=== PATIENT | female | born 1940 | race Two or more races ===

== ENCOUNTER 2017-04-24 00:05 | Inpatient (IN) | payer BC ==
[~2017-04-24] VITALS: Ht 162.6 cm; Wt 63.5 kg
[2017-04-24] VITALS (7 sets, daily range): BP systolic 118–149; BP diastolic 61–86
--- NOTE | 2017-04-24 00:05 | NUR ---
PT C/O LIP NUMBNESS AND HAVING A NEAR BLACK OUT X 5 HOURS. PT WITH FAMILY MEMBER AT BEDSIDE. NO SOB OR PAIN NOTED. JUST C/O WEAKNESS GENERALIZED. A/OX4 LAUGHING AND CRACKING JOKES WITH NSR 3RD DEGREE BLOCK CHANGING TO A-FIB WITH MOBILITY. WILL CONTINUE TO MONITOR FOR ANY CHANGES
[2017-04-24] MEDS ORDERED: ONDANSETRON HCL/PF 4 MG/2 ML VIAL ONE (00:42)
[2017-04-24] MEDS ORDERED: ONDANSETRON HCL/PF 4 MG/2 ML VIAL IVP ONE (01:00)
[2017-04-24] MEDS ORDERED: IV NS 0.9% 1,000 ML BAG IV ONE (01:00)
[2017-04-24 01:12] LABS: BASOPHILS % (AUTO) 0.3 % (0.0-2.0); EOSINOPHILS # (AUTO) 0.2 /CMM (0.0-0.7); EOSINOPHILS % (AUTO) 3.5 % (0.0-6.0); HEMATOCRIT 39 % (33-45); LYMPHOCYTES # (AUTO) 2.7 /CMM (0.8-4.8); LYMPHOCYTES % (AUTO) 38.6 % (20.0-44.0); MEAN CORPUSCULAR HEMOGLOBIN 28 PG (26.0-33.0); MEAN CORPUSCULAR HGB CONC 34 g/dl (31.0-36.0); MEAN CORPUSCULAR VOLUME 83 fL (82-100); MONOCYTES # (AUTO) 0.7 /CMM (0.1-1.30); MONOCYTES % (AUTO) 9.8 % (2.0-12.0); NEUTROPHILS # (AUTO) 3.3 /CMM (1.8-8.9); NEUTROPHILS % (AUTO) 47.8 % (43.0-81.0); PLATELET COUNT (AUTO) 267 /CMM (150-450); RDW COEFFICIENT OF VARIATION 13.8 (11.5-15.0); RED BLOOD CELL COUNT(AUTO) 4.64 MIL/uL (4.0-5.2)
--- NOTE | 2017-04-24 01:12 | NUR ---
PT OFF TO CT SCAN
[2017-04-24 01:26] LABS: CALCIUM, SERUM 9.5 mg/dL (8.5-10.1); CARBON DIOXIDE 31 mmol/L (21-32); CHLORIDE 97 mmol/L (98-107); CREATININE 0.8 mg/dL (0.6-1.3); GLUCOSE 167 mg/dL (74-106); INR 0.94 (0.87-1.13); POTASSIUM 3.4 mmol/L (3.5-5.1); SODIUM SERUM 138 mmol/L (136-145); UREA NITROGEN, BLOOD 22 mg/dL (7-18)
[2017-04-24 01:31] LABS: ALANINE AMINOTRANSFERASE 39 U/L (12-78); ALBUMIN 3.9 g/dL (3.4-5.0); ALKALINE PHOSPHATASE 53 U/L (46-116); ASPARTATE AMINOTRANSFERASE 25 U/L (15-37); BILIRUBIN,DIRECT 0.1 mg/dL (0.0-0.2); BILIRUBIN,TOTAL 0.4 mg/dL (0.2-1.0); TOTAL PROTEIN, SERUM 8.7 g/dL (6.4-8.2); TROPONIN I < 0.017 ng/mL (0.00-0.056)
--- NOTE | 2017-04-24 03:22 | NUR ---
CHARGE NURSE AND I SPOKE TO PT. SHE STATED "I FEEL A LITTLE LIGHT HEADED" AFTER WALKING WITH HER DOWN THE [place]
--- NOTE | 2017-04-24 03:29 | NUR ---
REPORT GIVEN TO PRESLEY
[2017-04-24] MEDS ORDERED: VALS1TAB54 PO (03:37)
[2017-04-24] MEDS ORDERED: AMLO5TAB2 PO (03:37)
--- NOTE | 2017-04-24 03:55 | NUR ---
RUSH SEATER NOTES PATIENT BROUGHT INTO THE UNIT VIA GURNEY FROM ED, ACCOMPANIED BY SON, BO. PATIENT SAFELY AMBULATED FROM GURNEY TO BED, ALERT AND ORIENTED X 4, NO C/O PAIN, NO SOB, BREATHING EVEN AND UNLABORED. ORIENTED PT TO FACILITY, ADMISSION PROCESS, ROOM, CALL LIGHT AND USE OF CALL LIGHT, PT VERBALIZED UNDERSTANDING. PLACED BED IN LOW POSITION AND LOCKED IN PLACE. PATIENT NOTED WITH INTACT SKIN, WITH LAC G20 IV PERIPHERAL LINE. ALL PATIENT'S NEEDS ATTENDED TO AT THIS TIME, WILL CONTINUE TO MONITOR.
[2017-04-24] MEDS ORDERED: ZOLPIDEM TARTRATE 5 MG TABLET PO PRN (04:30)
[2017-04-24] MEDS ORDERED: IV NS 0.9% 1,000 ML IV PRN (04:30)
[2017-04-24] MEDS ORDERED: MAG HYDROX/AL HYDROX/SIMETH 30 ML UDC PO PRN (04:30)
[2017-04-24] MEDS ORDERED: ACETAMINOPHEN 325 MG TABLET PO PRN (04:30)
[2017-04-24] MEDS ORDERED: MAGNESIUM HYDROXIDE 30 ML UDC PO PRN (04:30)
[2017-04-24] MEDS ORDERED: Z GUARD REMEDY 2 OZ OINT TP PRN (04:30)
[2017-04-24] MEDS ORDERED: ONDANSETRON HCL/PF 4 MG/2 ML VIAL IVP PRN (04:30)
[2017-04-24] MEDS ORDERED: HYDROCODONE/APAP 5/325MG 1 EACH TABLET PO PRN (04:30)
[2017-04-24] MEDS ORDERED: PRAV40TA3 PO (05:38)
[2017-04-24] MEDS ORDERED: SITA100T PO (05:38)
[2017-04-24] MEDS ORDERED: GLIP10TA11 PO (05:38)
--- NOTE | 2017-04-24 06:35 | NUR ---
RN CLOSING NOTE RESIDENT IN BED, ALERT AND ORIENTED X 4, NO C/O PAIN, DENIES DIZZINESS, NO SOB, BREATHING EVEN AND UNLABORED, PT ABLE TO AMBULATE TO THE BATHROOM WITH STANDBY ASSIST. ALL PATIENT'S NEEDS ATTENDED TO AT THIS TIME. WILL ENDORSE TO AM SHIFT NURSE FOR CONTINUITY OF CARE.
[2017-04-24 07:48] LABS: BASOPHILS % (AUTO) 0.3 % (0.0-2.0); EOSINOPHILS # (AUTO) 0.1 /CMM (0.0-0.7); HEMATOCRIT 38 % (33-45); HEMOGLOBIN 12.7 g/dL (11.5-14.8); LYMPHOCYTES # (AUTO) 2.2 /CMM (0.8-4.8); LYMPHOCYTES % (AUTO) 32.5 % (20.0-44.0); MEAN CORPUSCULAR HEMOGLOBIN 28 PG (26.0-33.0); MEAN CORPUSCULAR HGB CONC 34 g/dl (31.0-36.0); MEAN CORPUSCULAR VOLUME 83 fL (82-100); MONOCYTES # (AUTO) 0.6 /CMM (0.1-1.30); MONOCYTES % (AUTO) 8.8 % (2.0-12.0); NEUTROPHILS # (AUTO) 3.8 /CMM (1.8-8.9); NEUTROPHILS % (AUTO) 56.4 % (43.0-81.0); PLATELET COUNT (AUTO) 252 /CMM (150-450); RDW COEFFICIENT OF VARIATION 13.9 (11.5-15.0); RED BLOOD CELL COUNT(AUTO) 4.52 MIL/uL (4.0-5.2); WHITE BLOOD COUNT (AUTO) 6.8 K/uL (4.3-11.0)
--- NOTE | 2017-04-24 08:00 | NUR ---
tele net technical architect: initial assessment received pt in bed awake, a/ox4. denies dizziness, chest pain, sob, or any discomfort. tele sr with bbb=[id number]. instructed to call for assistance. will continue to monitor.
[2017-04-24 08:10] LABS: CHOLESTEROL 167 mg/dL (<200); HDL CHOLESTEROL 85 mg/dL (40-60); LDL 72 mg/dL (0-99); TRIGLYCERIDES 47 mg/dL (30-150)
[2017-04-24 08:15] LABS: CALCIUM, SERUM 8.9 mg/dL (8.5-10.1); CARBON DIOXIDE 28 mmol/L (21-32); CHLORIDE 104 mmol/L (98-107); CREATININE 0.7 mg/dL (0.6-1.3); GLUCOSE 153 mg/dL (74-106); MAGNESIUM 2.1 mg/dL (1.8-2.4); PHOSPHORUS 3.1 mg/dL (2.5-4.9); POTASSIUM 3.4 mmol/L (3.5-5.1); SODIUM SERUM 142 mmol/L (136-145); UREA NITROGEN, BLOOD 16 mg/dL (7-18)
[2017-04-24] MEDS ORDERED: ENOXAPARIN SODIUM 40 MG/0.4 ML DISP.SYRIN SQ SCH (09:00)
[2017-04-24] MEDS ORDERED: POTASSIUM CHLORIDE 20 MEQ TAB.PRT.SR PO SCH ×2 (10:00→12:30)
--- NOTE | 2017-04-24 10:00 | NUR ---
tele arcgis developer: neuro consult seen and examined by dr. schultz at this time.
--- NOTE | 2017-04-24 12:00 | NUR ---
tele dye house vat worker: notes pt request to have pneumococcal vaccination; pt refused on admission, but change his mind. pt qualifies and will administer when receive.
[2017-04-24] MEDS ORDERED: ASPIRIN EC 325 MG TABLET.DR PO SCH (12:30)
[2017-04-24] MEDS ORDERED: PNEUMOCOCCAL 23-VAL P-SAC VAC 0.5 ML VIAL SQ ONE (12:30)
--- NOTE | 2017-04-24 13:00 | NUR ---
tele flower cutter: notes orders received from dr. schultz. all orders acknowledged. pt for mri brain without contrast. checklist done and signed by pt. instructed to call for assistance. will continue to monitor.
--- NOTE | 2017-04-24 13:50 | NUR ---
tele web services developer: notes pneumococcal 0.5ml vaccination given sq to left arm. tele remove, pt for mri at this time. will continue to monitor.
--- NOTE | 2017-04-24 14:30 | NUR ---
tele kickboxing instructor: notes dr. cadena looking for pt and informed md that pt is at mri at this time; also informed md re: home medication needs to be reconciled.
--- NOTE | 2017-04-24 14:45 | NUR ---
tele tractor mechanic helper: notes pt back from mri brain, c/o barron. tylenol 650mg po given as ordered. left message to dr. cadena thru exchange re: pt back to her room.
--- NOTE | 2017-04-24 14:50 | NUR ---
tele dormitory supervisor: md visit dr. cadena at bedside at this time. will continue to monitor.
--- NOTE | 2017-04-24 16:13 | NUR ---
tele continuous miner operator helper: notes received order from dr. cadena to d'c pt home with Discharge instructions <Followup with primary care physician in one to 2 weeks, Increase dose of aspirin to take 325 mg daily, Continue the rest of the medications. order acknowledged. pt made aware.
--- NOTE | 2017-04-24 16:30 | NUR ---
tele senior specialist: d'c instructions discharged instructions given to pt and verbalized understanding. tele removed. h/l removed with tip intact with no bleeding, no redness, and no swelling noted. awaiting for son to pick her up.
--- NOTE | 2017-04-24 17:07 | NUR ---
tele search planner: discharged discharged home accompanied by son via taxi in stable condition with all valuables and d'c papers.
[2017-04-24] MEDS ORDERED: ATORVASTATIN 10 MG TABLET PO SCH (22:00)
== END 2017-04-24 17:05 | disposition home or self-care (01) | DRG 69 ==
LOC: ER 00:08 → TELE 03:30
PROVIDERS: ADMIT Nurse Practitioner Acute Care; ATTEND Nurse Practitioner Acute Care
DX: G45.9 Transient cerebral ischemic attack, unspecified (principal); I48.0 Paroxysmal atrial fibrillation; E11.9 Type 2 diabetes mellitus without complications; E78.5 Hyperlipidemia, unspecified; G43.109 Migraine with aura, not intractable, without status migrainosus; I10 Essential (primary) hypertension; Z79.84 Long term (current) use of oral hypoglycemic drugs
CPT/HCPCS: 36415; 70450-TC; 70551-TC; 71045-TC; 80048-TC; 80061-TC; 80076-TC; 83735-TC; 84100-TC; 84484-TC; 85025-TC; 85730-TC; 87081-TC; 90732; 93307-TC; 93880-TC; A4606; J1650; J2405; J7030; Z7610

== ENCOUNTER 2022-04-23 21:49 | Inpatient (IN) | payer BC ==
[~2022-04-23] VITALS: Ht 154.9 cm; Wt 61.2 kg
[~2022-04-23 21:49] MED LIST: AMLO-212 PO; GLIP10TA11 PO; PRAV40TA3 PO; SITA100T PO; VALS1TAB8 PO
--- NOTE | 2022-04-23 22:03 | NUR ---
Sona, sent by PMD c/o headache and lip heaviness since 8pm. Pt A/Ox4. Tolerating R/A well with no Resp distress. Connected pt to POX and monitor. Safety measures in place.
--- NOTE | 2022-04-23 22:33 | NUR ---
LAC #20G S/L BLOOD AND COVID ANTIGEN SWAB COLLECTED AND SENT TO LAB
--- NOTE | 2022-04-23 22:34 | NUR ---
EMT AT PT'S BEDSIDE FOR EKG
--- NOTE | 2022-04-23 22:45 | NUR ---
PT TAKEN TO CT VIA JAKE
[2022-04-23 22:48] LABS: BASOPHILS # (AUTO) 0.1 K/uL (0.0-0.2); BASOPHILS % (AUTO) 0.6 % (0.0-2.0); EOSINOPHILS % (AUTO) 2.8 % (0.0-6.0); HEMATOCRIT 33 % (33-45); HEMOGLOBIN 10.7 g/dL (11.5-14.8); LYMPHOCYTES # (AUTO) 3.1 K/uL (0.8-4.8); MEAN CORPUSCULAR HGB CONC 32 g/dl (31.0-36.0); MEAN CORPUSCULAR VOLUME 86 fL (82-100); MONOCYTES # (AUTO) 0.8 K/uL (0.1-1.30); MONOCYTES % (AUTO) 8.3 % (2.0-12.0); NEUTROPHILS # (AUTO) 5.4 K/uL (1.8-8.9); NEUTROPHILS % (AUTO) 56.3 % (43.0-81.0); PLATELET COUNT (AUTO) 278 K/uL (150-450); RED BLOOD CELL COUNT(AUTO) 3.86 MIL/uL (4.0-5.2); WHITE BLOOD COUNT (AUTO) 9.6 K/uL (4.3-11.0)
[2022-04-23 22:58] LABS: CALCIUM, SERUM 9.3 mg/dL (8.5-10.1); CARBON DIOXIDE 30 mmol/L (21-32); CHLORIDE 102 mmol/L (98-107); CREATININE 1.2 mg/dL (0.6-1.3); GLUCOSE 200 mg/dL (74-106); SODIUM SERUM 137 mmol/L (136-145); UREA NITROGEN, BLOOD 44 mg/dL (7-18)
[2022-04-23 23:11] LABS: ALANINE AMINOTRANSFERASE 33 U/L (12-78); ALBUMIN 3.9 g/dL (3.4-5.0); ALKALINE PHOSPHATASE 71 U/L (46-116); ASPARTATE AMINOTRANSFERASE 30 U/L (15-37); BILIRUBIN,DIRECT 0.1 mg/dL (0.0-0.2); BILIRUBIN,TOTAL 0.3 mg/dL (0.2-1.0); TOTAL PROTEIN, SERUM 7.7 g/dL (6.4-8.2)
[2022-04-24] MEDS ORDERED: INSULIN GLARGINE, 100 UNIT/ML CARTRIDGE SQ SCH (00:30)
[2022-04-24] MEDS ORDERED: INSULIN GLARGINE, 100 UNIT/ML CARTRIDGE SQ ONE (00:32)
[2022-04-24] MEDS ORDERED: ASPIRIN 325 MG TABLET ONE (00:40)
[2022-04-24] MEDS ORDERED: ACETAMINOPHEN ES 500 MG TABLET ONE (00:40)
[2022-04-24] MEDS ORDERED: hydrALAZINE HCL IV 20 MG VIAL IV PRN (01:00)
[2022-04-24] MEDS ORDERED: ACETAMINOPHEN ES 500 MG TABLET PO ONE (01:00)
[2022-04-24] MEDS ORDERED: ASPIRIN 325 MG TABLET PO ONE (01:00)
[2022-04-24] MEDS ORDERED: ENOXAPARIN SODIUM 40 MG/0.4 ML DISP.SYRIN SQ SCH (01:00)
[2022-04-24 02:04] LABS: THYROID STIMULATING HORMONE 4.291 uIU/mL (0.358-3.74)
--- NOTE | 2022-04-24 02:17 | NUR ---
bed 102
--- NOTE | 2022-04-24 02:36 | NUR ---
report given to josue
[2022-04-24] MEDS ORDERED: DEXTROSE 50%-WATER 50 ML DISP.SYRIN IV PRN (03:00)
--- NOTE | 2022-04-24 03:04 | NUR ---
patient transported to room 102 in stable condition via rney
--- NOTE | 2022-04-24 04:27 | NUR ---
RN NOTE PT A/O X4 ABLE TO MAKE NEEDS KNOW. ON ROOM AIR TOLERATING WELL NO DISTRESS NOTED. PT NOTED WITH IV ACCESS ON LAC #20G S/L FLUSHING WELL. PT SON AT BEDSIDE. PT URINE COLLECTED PT NOTED OT BE ABLE TO AMBULATE WITH A STEADY GAIT. PT ORIENTED TO UNIT AND ROOM. CALL LIGHT WITHIN REACH.TABLE WITHIN REACH. ALL NEEDS MET AT THIS TIME.
[2022-04-24 04:32] VITALS: BP 156/67
[2022-04-24] MEDS ORDERED: GABA-532 PO (05:41)
[2022-04-24] MEDS ORDERED: AMYL1CAP56 PO (05:41)
[2022-04-24] MEDS ORDERED: SPIR50TA5 PO (05:41)
[2022-04-24] MEDS ORDERED: CARV12.52 PO (05:41)
[2022-04-24] MEDS ORDERED: INSU100V7 SQ (05:41)
[2022-04-24] MEDS ORDERED: INSU100V39 SQ (05:41)
[2022-04-24] MEDS ORDERED: BRIN10DR RIGHTEYE (05:41)
[2022-04-24] MEDS ORDERED: LOSA100T31 PO (05:41)
[2022-04-24] MEDS ORDERED: FAMO20TA8 PO (05:41)
[2022-04-24] MEDS ORDERED: FURO20TA4 PO (05:41)
[2022-04-24] MEDS ORDERED: LATA7.5D EACHEYE (05:41)
[2022-04-24 05:54] LABS: BILIRUBIN,URINE NEGATIVE (NEGATIVE); COLOR,URINE OTHER (YELLOW); LEUKOCYTE ESTERASE ,URINE 1+ (NEGATIVE); NITRITE, URINE NEGATIVE (NEGATIVE); PROTEIN,URINE NEGATIVE (NEGATIVE); UGLUCOSE NEGATIVE (NEGATIVE); UROBILINOGEN,URINE 0.2 EU/dL (0.2)
[2022-04-24 06:12] LABS: BACTERIA,URINE Many /HPF (None Seen)
[2022-04-24 06:13] LABS: RBC,URINE 0-2 /HPF (0-2); SQUAMOUS EPITHELIAL CELL,UR Few /HPF (None Seen)
--- NOTE | 2022-04-24 06:56 | NUR ---
RN CLOSING NOTE PT A/O X4 ABLE TO MAKE NEEDS KNOW. ON ROOM AIR TOLERATING WELL NO DISTRESS NOTED. PT NOTED WITH IV ACCESS ON LAC #20G S/L FLUSHING WELL. PT ON TELE MONITOR READING SB 50S CALL LIGHT WITHIN REACH.TABLE WITHIN REACH. ALL NEEDS MET AT THIS TIME.
[2022-04-24] MEDS ORDERED: PANTOPRAZOLE 40 MG TABLET.DR PO SCH (07:30)
--- NOTE | 2022-04-24 07:55 | NUR ---
teletype clerk note patient in bed , all needs attended on tele monitor sr hr 61, alert oriented x4, assisted to br , lt ac hl intact and flushed well , bed in lowest and locked position , call light within reach. on r a no sob noted at this time, will cont to monitor
[2022-04-24 08:00] VITALS: BP 159/76
[2022-04-24] MEDS: INSULIN REGULAR, HUMAN 100 UNIT/ML 3 ML VIAL SQ PRN ×2 (08:20→11:54)
[2022-04-24] MEDS: BLOOD SUGAR DIAGNOSTIC 1 EACH STRIP IN SCH ×3 (08:22→17:26)
[2022-04-24] MEDS ORDERED: ASPIRIN EC 81 MG TABLET.DR PO SCH (09:00)
--- NOTE | 2022-04-24 11:20 | NUR ---
AOC AIRSPACE CONTROL OFFICER NOTES PHYSICAL THERAPIST AT BEDSIDE. PATIENT AMBULATORY WITH SOME ASSISTANCE. NO COMPLAINTS OF PAIN OR DISCOMFORT. 4567 DVT COMPRESSION STOCKINGS ORDERED.
[2022-04-24 11:28] LABS: CHOLESTEROL 131 mg/dL (<200); HDL CHOLESTEROL 80 mg/dL (40-60); LDL 41 mg/dL (0-99); TRIGLYCERIDES 57 mg/dL (30-150)
[2022-04-24 12:00] VITALS: BP 166/79
--- NOTE | 2022-04-24 12:02 | NUR ---
STAFF RADIOLOGIST NOTES SPOKE WITH RN/TELEPHONE ORDER DISPATCHER VERENA CAUSEY ABOUT BP 166/79. REQUESTED THAT CHECK MED RECONCILIATION. PER HIS ORDER, CALLED NEUROLOGIST DR PUENTE FOR NEUROLOGY CONSULT- STATED HE WILL COME SHORTLY.
[2022-04-24] MEDS: LIPASE/PROTEASE/AMYLASE 1 EACH CAPSULE.DR PO SCH ×2 (12:40→17:28)
[2022-04-24] MEDS: GABAPENTIN 100 MG CAPSULE PO SCH ×2 (12:40→16:16)
[2022-04-24] MEDS ORDERED: IBUP-1957 PO (12:51)
[2022-04-24] MEDS ORDERED: DORZ10DR11 RIGHTEYE (12:51)
[2022-04-24] MEDS ORDERED: CHOL100043 PO (12:51)
[2022-04-24] MEDS ORDERED: ATOR10TA PO (12:51)
[2022-04-24] MEDS ORDERED: BRIN8DRO2 RIGHTEYE (12:51)
--- NOTE | 2022-04-24 15:18 | NUR ---
GAS METER REPAIRER NOTES PATIENT ROUNDS COMPLETED. PATIENT IN BED RESTING WITH SON AT BEDSIDE. NEURO CONSULT COMPLETED. DVT PUMP IN PLACE. DR PUENTE AT BEDSIDE, SPOKE WITH PATIENT.
[2022-04-24 16:00] VITALS: BP 152/72
[2022-04-24 16:40] VITALS: BP 152/72
[2022-04-24] MEDS ORDERED: CARVEDILOL 12.5 MG TABLET PO SCH (17:00)
[2022-04-24] MEDS ORDERED: FUROSEMIDE 20 MG TABLET PO SCH (17:00)
[2022-04-24] MEDS ORDERED: ASPI-1169 PO (17:05)
[2022-04-24] MEDS ORDERED: SIMV-46 PO (17:05)
--- NOTE | 2022-04-24 17:48 | NUR ---
MED SURG NURSE NOTES PATIENT DISCHARGED ORDERED. DISCHARGE INSTRUCTIONS GIVEN. CONFIRMED UNDERSTANDING. INSTRUCTED TO FOLLOW UP WITH DOCTOR AND NEUROLOGIST. INSTRUCTED ON MEDICATION REGIMEN AND TOLD TO CONTINUE ON IT. EXPLAINED SIDE EFFECTS. TEACHING AND EDUCATION MATERIAL GIVEN AT BEDSIDE REGARDING STROKE. CONFIRMED UNDERSTANDING. HEP LOCK REMOVED, DRIED DRESSING APPLIED. NO BLEEDING NOTED. SON AT BEDSIDE. PATIENT TAKEN TO LOBBY IN WHEELCHAIR IN STABLE CONDITION. ALL BELONGINGS TAKEN.
[2022-04-24] MEDS ORDERED: ATORVASTATIN 10 MG TABLET PO SCH (18:00)
[2022-04-24] MEDS ORDERED: ENOXAPARIN SODIUM 30 MG/0.3 ML DISP.SYRIN SQ SCH (21:00)
[2022-04-24] MEDS ORDERED: SIMVASTATIN 20 MG TABLET PO SCH (22:00)
[2022-04-24] MEDS ORDERED: INSULIN GLARGINE HUM REC ANLOG 12 UNIT SQ SCH (22:00)
[2022-04-25] MEDS ORDERED: SPIRONOLACTONE 25 MG TABLET PO SCH (09:00)
[2022-04-25] MEDS ORDERED: LOSARTAN POTASSIUM 50 MG TABLET PO SCH (09:00)
[2022-04-25] MEDS ORDERED: Medication Not On Formulary EA (Valsartan/Hydrochlorothiazide (Diovan Hct 320-25 Mg Tabl PO SCH (09:00)
[2022-04-25] MEDS ORDERED: FAMOTIDINE (20 MG) 20 MG TABLET PO SCH (09:00)
[2022-04-25] MEDS ORDERED: AMLODIPINE BESYLATE 5 MG TABLET PO SCH (09:00)
[2022-04-25] MEDS ORDERED: BRINZOLAMIDE 1 % OPHTH SOLN 10 ML BOTTLE RIGHTEYE SCH (09:00)
[2022-04-25] MEDS ORDERED: LATANOPROST EYE DROP 0.005% 2.5 ML BOTTLE EACHEYE SCH (09:00)
--- NOTE | 2022-04-25 16:40 | NUR ---
SS consult requested for stroke over the weekend. However, pt. has departed.
== END 2022-04-24 17:48 | disposition home health service (06) | DRG 69 ==
LOC: ER 22:00 → MEDSG1 04-24 02:26 → TELE1 04-24 03:13 → MEDSG1 04-24 14:25
PROVIDERS: ADMIT Nurse Practitioner Acute Care; ATTEND Nurse Practitioner Acute Care
DX: G45.9 Transient cerebral ischemic attack, unspecified (principal); G43.909 Migraine, unspecified, not intractable, without status migrainosus; R29.700 NIHSS score 0; Z20.822 Contact with and (suspected) exposure to COVID-19; E11.9 Type 2 diabetes mellitus without complications; I10 Essential (primary) hypertension; Z88.0 Allergy status to penicillin; Z88.8 Allergy status to other drugs, medicaments and biological substances; Z91.012 Allergy to eggs; Z79.84 Long term (current) use of oral hypoglycemic drugs; Z79.899 Other long term (current) drug therapy; E86.0 Dehydration; R79.89 Other specified abnormal findings of blood chemistry; I35.1 Nonrheumatic aortic (valve) insufficiency; E78.5 Hyperlipidemia, unspecified; R94.6 Abnormal results of thyroid function studies
CPT/HCPCS: 36415; 70450-TC; 71045-TC; 80048-TC; 80061-TC; 80076-TC; 81001; 82962-TC; 83880; 84443-TC; 84484-TC; 85025-TC; 85652-TC; 87081-TC; 87086-TC; 93307-TC; 93880-TC; 97116-TC; 97530-TC; C9803; G0378; J1650; J1815

== ENCOUNTER 2022-07-17 23:16 | Inpatient (IN) | payer BC ==
[~2022-07-17] VITALS: Ht 165.1 cm; Wt 63.0 kg
[~2022-07-17 23:16] MED LIST changes: -AMLO-212 PO; +AMYL1CAP56 PO; +ASPI-1169 PO; +BRIN8DRO2 RIGHTEYE; +CARV12.52 PO; +CHOL100043 PO; +DORZ10DR11 RIGHTEYE; +FAMO20TA8 PO; +FURO20TA4 PO; +GABA-532 PO; -GLIP10TA11 PO; +IBUP-1957 PO; +INSU100V39 SQ; +INSU100V7 SQ; +LATA7.5D EACHEYE; +LOSA100T31 PO; -PRAV40TA3 PO; +SIMV-46 PO; -SITA100T PO; +SPIR50TA5 PO; -VALS1TAB8 PO
--- NOTE | 2022-07-17 23:25 | NUR ---
To ER bed 1, bibson, c/o chest pressure and headache started around 7pm 8/10 ps, aaox4, breathing even and non labored, connected to monitor, awaiting md orders
[2022-07-17] MEDS ORDERED: NITROGLYCERIN 0.4 MG/TAB BOTTLE SL ONE (23:30)
[2022-07-17] MEDS ORDERED: NITROGLYCERIN 0.4 MG/TAB BOTTLE ONE (23:32)
--- NOTE | 2022-07-17 23:40 | NUR ---
COVID SWAB DONE AND SENT TO LAB
[2022-07-17 23:57] LABS: BASOPHILS # (AUTO) 0.1 K/uL (0.0-0.2); BASOPHILS % (AUTO) 1.3 % (0.0-2.0); EOSINOPHILS % (AUTO) 3.4 % (0.0-6.0); HEMATOCRIT 32 % (33-45); HEMOGLOBIN 10.5 g/dL (11.5-14.8); LYMPHOCYTES % (AUTO) 31.6 % (20.0-44.0); MEAN CORPUSCULAR HGB CONC 33 g/dl (31.0-36.0); MEAN CORPUSCULAR VOLUME 83 fL (82-100); MONOCYTES # (AUTO) 1.1 K/uL (0.1-1.30); MONOCYTES % (AUTO) 11.1 % (2.0-12.0); NEUTROPHILS % (AUTO) 52.6 % (43.0-81.0); PLATELET COUNT (AUTO) 243 K/uL (150-450); RED BLOOD CELL COUNT(AUTO) 3.88 MIL/uL (4.0-5.2); WHITE BLOOD COUNT (AUTO) 9.4 K/uL (4.3-11.0)
[2022-07-18 00:10] LABS: ALANINE AMINOTRANSFERASE 33 U/L (12-78); ALBUMIN 3.8 g/dL (3.4-5.0); ALKALINE PHOSPHATASE 78 U/L (46-116); ASPARTATE AMINOTRANSFERASE 21 U/L (15-37); BILIRUBIN,DIRECT 0.1 mg/dL (0.0-0.2); BILIRUBIN,TOTAL 0.3 mg/dL (0.2-1.0); CALCIUM, SERUM 9.1 mg/dL (8.5-10.1); CARBON DIOXIDE 27 mmol/L (21-32); CHLORIDE 98 mmol/L (98-107); CREATININE 1.8 mg/dL (0.6-1.3); GLUCOSE 160 mg/dL (74-106); POTASSIUM 5.3 mmol/L (3.5-5.1); SODIUM SERUM 131 mmol/L (136-145); TOTAL PROTEIN, SERUM 7.5 g/dL (6.4-8.2); UREA NITROGEN, BLOOD 58 mg/dL (7-18)
[2022-07-18] MEDS ORDERED: ACETAMINOPHEN 325 MG TABLET ONE (02:08)
--- NOTE | 2022-07-18 02:13 | NUR ---
URINE COLLECTED AND SENT TO LAB
[2022-07-18] MEDS ORDERED: ACETAMINOPHEN 325 MG TABLET PO ONE (02:30)
[2022-07-18] MEDS ORDERED: DEXTROSE 50%-WATER 50 ML DISP.SYRIN IV PRN (03:00)
[2022-07-18] MEDS ORDERED: INSULIN REGULAR, HUMAN 100 UNIT/ML 3 ML VIAL SQ PRN (03:00)
[2022-07-18 03:21] LABS: BILIRUBIN,URINE NEGATIVE (NEGATIVE); COLOR,URINE YELLOW (YELLOW); LEUKOCYTE ESTERASE ,URINE NEGATIVE (NEGATIVE); NITRITE, URINE NEGATIVE (NEGATIVE); PROTEIN,URINE NEGATIVE (NEGATIVE); UGLUCOSE NEGATIVE (NEGATIVE); UROBILINOGEN,URINE 0.2 EU/dL (0.2)
[2022-07-18 05:02] LABS: BASOPHILS % (AUTO) 0.5 % (0.0-2.0); EOSINOPHILS % (AUTO) 4.2 % (0.0-6.0); HEMATOCRIT 33 % (33-45); HEMOGLOBIN 10.7 g/dL (11.5-14.8); LYMPHOCYTES # (AUTO) 2.7 K/uL (0.8-4.8); LYMPHOCYTES % (AUTO) 28.8 % (20.0-44.0); MEAN CORPUSCULAR HGB CONC 33 g/dl (31.0-36.0); MEAN CORPUSCULAR VOLUME 83 fL (82-100); MONOCYTES # (AUTO) 0.8 K/uL (0.1-1.30); MONOCYTES % (AUTO) 9.1 % (2.0-12.0); NEUTROPHILS # (AUTO) 5.3 K/uL (1.8-8.9); NEUTROPHILS % (AUTO) 57.4 % (43.0-81.0); PLATELET COUNT (AUTO) 245 K/uL (150-450); RED BLOOD CELL COUNT(AUTO) 3.94 MIL/uL (4.0-5.2); WHITE BLOOD COUNT (AUTO) 9.2 K/uL (4.3-11.0)
[2022-07-18 05:10] LABS: CALCIUM, SERUM 9.7 mg/dL (8.5-10.1); CARBON DIOXIDE 25 mmol/L (21-32); CHLORIDE 100 mmol/L (98-107); CREATININE 1.4 mg/dL (0.6-1.3); GLUCOSE 192 mg/dL (74-106); SODIUM SERUM 133 mmol/L (136-145); UREA NITROGEN, BLOOD 55 mg/dL (7-18)
--- NOTE | 2022-07-18 05:24 | NUR ---
PER NURSE CATHLEEN REINA, TRANSFER AFTER CHANGE OF SHIFT
[2022-07-18 05:26] LABS: ALANINE AMINOTRANSFERASE 33 U/L (12-78); ALBUMIN 3.8 g/dL (3.4-5.0); ALKALINE PHOSPHATASE 78 U/L (46-116); ASPARTATE AMINOTRANSFERASE 26 U/L (15-37); BILIRUBIN,TOTAL 0.4 mg/dL (0.2-1.0); CHOLESTEROL 134 mg/dL (<200); HDL CHOLESTEROL 92 mg/dL (40-60); LDL 34 mg/dL (0-99); THYROID STIMULATING HORMONE 2.732 uIU/mL (0.358-3.74); TOTAL PROTEIN, SERUM 7.6 g/dL (6.4-8.2); TRIGLYCERIDES 46 mg/dL (30-150)
--- NOTE | 2022-07-18 05:49 | NUR ---
REPORT GIVEN TO TAINA MICHAEL FOR DL. TRANSFER AT [id number]
[2022-07-18] MEDS ORDERED: BLOOD SUGAR DIAGNOSTIC 1 EACH STRIP IN SCH ×2 (06:00→07:30)
--- NOTE | 2022-07-18 07:40 | NUR ---
transferred to bed 117 in stable condition
--- NOTE | 2022-07-18 07:58 | NUR ---
PATIENT RECEIVED FROM THE ER IN STABLE CONDITION. PATIENT TRANSFERRED TO ROOM 110. ON ROOM AIR WITH BREATHING EVEN AND UNLABORED AND NO S/S OF SOB OR RESPIRATORY DISTRESS. PATIENT'S SON AT BEDSIDE. WILL CONTINUE TO MONITOR.
[2022-07-18 08:00] VITALS: BP 110/77
[2022-07-18] MEDS ORDERED: hydrALAZINE HCL 50 MG TABLET PO SCH (09:00)
[2022-07-18] MEDS ORDERED: FAMOTIDINE (20 MG) 20 MG TABLET PO SCH (09:00)
[2022-07-18] MEDS ORDERED: LOSARTAN POTASSIUM 50 MG TABLET PO SCH (09:00)
[2022-07-18] MEDS: TIMOLOL MAL/DORZOLAM HCL OPHTH 10 ML BOTTLE RIGHTEYE SCH ×2 (09:00→12:14)
[2022-07-18] MEDS ORDERED: HEPARIN SODIUM, PORCINE 5000 UNITS/1 ML VIAL SQ SCH (09:00)
[2022-07-18] MEDS ORDERED: IV NS 0.9% 1,000 ML IV PRN (09:00)
[2022-07-18] MEDS ORDERED: PANTOPRAZOLE 40 MG VIAL IV SCH (09:00)
[2022-07-18] MEDS ORDERED: GABAPENTIN 100 MG CAPSULE PO SCH (09:00)
[2022-07-18] MEDS ORDERED: ASPIRIN 81 MG TAB.CHEW PO SCH ×2 (09:00)
[2022-07-18] MEDS ORDERED: NITROGLYCERIN 30 GM TUBE TP SCH (09:00)
[2022-07-18] MEDS ORDERED: CARVEDILOL 6.25 MG TABLET PO SCH (09:00)
[2022-07-18] MEDS ORDERED: CARVEDILOL 12.5 MG TABLET PO SCH (09:00)
[2022-07-18] MEDS: BLOOD SUGAR DIAGNOSTIC 1 EACH STRIP IN SCH ×2 (09:14→12:31)
[2022-07-18 09:35] VITALS: BP 110/77
[2022-07-18 09:47] LABS: THYROID STIMULATING HORMONE 2.832 uIU/mL (0.358-3.74)
--- NOTE | 2022-07-18 12:27 | NUR ---
PATIENT STATES THAT SHE DOES NOT TAKE TIMOLOL
[2022-07-18] MEDS ORDERED: LIPASE/PROTEASE/AMYLASE 1 EACH CAPSULE.DR PO SCH (13:00)
--- NOTE | 2022-07-18 13:16 | NUR ---
PATIENT DISCHARGED IN STABLE CONDITION TO HOME. LEFT WITH SON. EXITCARE PROVIDED.
[2022-07-18 15:51] LABS: CREATININE, URINE 63.3 MG/DL (30.0-125.0)
[2022-07-18] MEDS ORDERED: FUROSEMIDE 20 MG TABLET PO SCH (17:00)
[2022-07-18] MEDS ORDERED: IBUPROFEN 800 MG TABLET PO SCH (17:00)
[2022-07-18] MEDS ORDERED: PRAVASTATIN SODIUM 20 MG TABLET PO SCH (22:00)
[2022-07-18] MEDS ORDERED: LATANOPROST EYE DROP 0.005% 2.5 ML BOTTLE EACHEYE SCH (22:00)
[2022-07-18] MEDS ORDERED: INSULIN GLARGINE, 100 UNIT/ML CARTRIDGE SQ SCH (22:00)
[2022-07-18] MEDS ORDERED: SIMVASTATIN 20 MG TABLET PO SCH (22:00)
== END 2022-07-18 13:30 | disposition home or self-care (01) | DRG 205 ==
LOC: ER 23:17 → TELE1 07-18 05:25
PROVIDERS: ADMIT Nurse Practitioner Acute Care; ATTEND Nurse Practitioner Acute Care
DX: M94.0 Chondrocostal junction syndrome [Tietze] (principal); N17.0 Acute kidney failure with tubular necrosis; E87.1 Hypo-osmolality and hyponatremia; E87.5 Hyperkalemia; R51.9 Headache, unspecified; E78.5 Hyperlipidemia, unspecified; I44.7 Left bundle-branch block, unspecified; Z95.2 Presence of prosthetic heart valve; E11.65 Type 2 diabetes mellitus with hyperglycemia; H40.9 Unspecified glaucoma; I10 Essential (primary) hypertension; D63.8 Anemia in other chronic diseases classified elsewhere; Z98.890 Other specified postprocedural states; Z90.81 Acquired absence of spleen; Z90.49 Acquired absence of other specified parts of digestive tract; Z91.012 Allergy to eggs; Z91.041 Radiographic dye allergy status; Z87.19 Personal history of other diseases of the digestive system; Z79.4 Long term (current) use of insulin; Z79.899 Other long term (current) drug therapy; Z79.82 Long term (current) use of aspirin; Z87.81 Personal history of (healed) traumatic fracture; Z88.0 Allergy status to penicillin; Z20.822 Contact with and (suspected) exposure to COVID-19
CPT/HCPCS: 36415; 70450-TC; 71045-TC; 76770-TC; 80048-TC; 80053-TC; 80061-TC; 80076-TC; 82533; 82570-TC; 82728-TC; 82962-TC; 83540-TC; 83880; 84300-TC; 84439-TC; 84443-TC; 84484-TC; 85025-TC; 85730-TC; 92526; 92611-TC; 93307-TC; 97116-TC; 97530-TC; C9113; C9803; G0378; J1644; J1815